=== PATIENT | female | born 1970 | race Hispanic/Latino ===

== ENCOUNTER 2016-08-24 14:44 | Outpatient (CLI) | payer BC | END 2016-08-24 14:45 | disposition home or self-care (01) | LOC: HPCALD 14:44 | PROVIDERS: ATTEND Physician Assistant | DX: E03.9 Hypothyroidism, unspecified (principal); R30.0 Dysuria | CPT/HCPCS: 36415; 84443; 87086 ==

== ENCOUNTER 2017-01-17 11:00 | Outpatient (CLI) | payer BC ==
--- NOTE | 2017-01-17 14:24 | RAD ---
CERVICAL SPINE THREE VIEWS: History: Numbness in the left arm for months, worse recently. No known trauma. Comparison: November 2009 FINDINGS: There is moderate degenerative disc space height loss at C5-6 with osteophyte formation and uncal ve rtebral hypertrophy. There is C5-6 neural foraminal narrowing. There are bilateral C7 cervical ribs. No acute fracture or malalignment. Prevertebral soft tissues are unremarkable. IMPRESSION: 1. Moderate degenerative disc space height loss at C5-6 with endplate sclerosis, osteophyte formatio n, uncal vertebral hypertrophy and likely neural foraminal narrowing bilaterally. MRI may be helpful . This has progressed from 2009. 2. Bilateral C7 ribs can contribute to brachial neuritis. POS: OFF
== END 2017-01-17 11:01 | disposition home or self-care (01) ==
LOC: BURRAD 11:00
PROVIDERS: ATTEND Physician Assistant
DX: R20.0 Anesthesia of skin (principal); M50.322 Other cervical disc degeneration at C5-C6 level; Q76.5 Cervical rib
CPT/HCPCS: 72040

== ENCOUNTER 2019-05-23 00:46 | Emergency (ER) | payer BC ==
[2019-05-23] MEDS ORDERED: Ondansetron PF 4 MG/2 ML Vial ONE ×2 (01:23→01:57)
[2019-05-23 01:29] LABS: Bilirubin Negative (Negative); Blood, Urine Negative (Negative); Glucose, Urine (Dipstick) Negative (Negative); Leukocyte Negative (Negative); Nitrite Negative (Negative); Protein, Urine (Dipstick) Negative (Neg-Trace)
[2019-05-23] MEDS ORDERED: Famotidine In NaCl 20 mg/50 ml Premix Bag ONE (01:31)
[2019-05-23 01:32] LABS: #Basophils 0.2 thou/uL (0.0-0.2); #Eosinphils 0.6 thou/uL (0.0-0.7); #Lymphocytes 2.7 thou/uL (1.20-3.40); #Monocytes 0.6 thou/uL (0.11-0.59); #Neutrophils 4.9 thou/uL (1.40-6.50); %Basophils 1.9 % (0.0-1.0); %Eosinophils 6.3 % (0.0-10.0); %Lymphocytes 30.7 % (21.0-51.0); %Monocytes 6.6 % (0.0-10.0); %Neutrophils 54.5 % (42.0-75.0); Hemoglobin 13.3 g/dL (12.0-16.0); Mean Corpuscular HGB CONC 33.7 g/dL (32.0-36.0); Mean Corpuscular Hemoglobin 29.7 pg (27.0-31.0); Mean Corpuscular Volume 88.2 fL (78.0-98.0); Mean Platelet Volume 6.9 fL (7.4-10.4); Platelet Count 236 thou/uL (130-400); RBC Distribution Width 12.1 % (11.5-14.5); Red Blood Cell (RBC) Count 4.47 mill/uL (4.20-5.40); White Blood Cell (WBC) Count 8.9 thou/uL (4.8-10.8)
[2019-05-23 01:32] LABS: Clarity Hazy (Clear)
[2019-05-23] MEDS ORDERED: Glycopyrrolate 0.4 MG/ 2 ML VIAL ONE (01:51)
[2019-05-23 01:57] LABS: ALT (SGPT) 8 U/L (8-55); AST (SGOT) 16 U/L (5-34); Albumin 4.1 g/dL (3.5-5.0); Alkaline Phosphatase 76 U/L (40-110); Anion Gap 10 mmol/L (10-20); BUN (Urea Nitrogen) 9 mg/dL (7.0-18.7); Bilirubin, Total 0.3 mg/dL (0.2-1.2); Calc. Creatinine Clearance 0 mL/min (70-130); Calcium 9.7 mg/dL (7.8-10.44); Carbon Dioxide 25 mmol/L (22-29); Chloride 106 mmol/L (98-107); Estimated GFR-MDRD 81; Glucose 101 mg/dL (70-105); Lipase 18 U/L (8-78); Potassium 3.4 mmol/L (3.5-5.1); Protein, Total 7.1 g/dL (6.0-8.3); Sodium 138 mmol/L (136-145)
[2019-05-23] MEDS ORDERED: Fentanyl 100 MCG/2 ML VIAL ONE (01:59)
[2019-05-23 03:19] LABS: Troponin I 0.084 ng/mL (< 0.028)
[2019-05-23] MEDS ORDERED: Enoxaparin Sodium 40 MG/0.4 ML SYRINGE ONE (03:39)
[2019-05-23] MEDS ORDERED: Enoxaparin Sodium 30 MG/0.3 ML SYRINGE ONE (03:39)
[2019-05-23] MEDS ORDERED: Aspirin Chewable 81 MG TAB ONE (03:39)
--- NOTE | 2019-05-23 07:21 | RAD ---
PORTABLE CHEST: DATE: 05/23/2019. FINDINGS: An AP portable film at 0342 is compared with a 05/08/2009 study. The heart is normal in size and the lungs are clear. There is no congestion, edema, or pleural effusion. No focal pulmonary infiltrate was seen. Very minor accentuation of basilar lung markings is thought to be due to the overlying sof t tissues. The trachea is midline. IMPRESSION: No acute thoracic findings. POS: BREANNA
== END 2019-05-23 04:00 | disposition short-term general hospital (02) ==
LOC: BURERS 00:46
DX: R10.13 Epigastric pain (principal); R79.89 Other specified abnormal findings of blood chemistry; K21.9 Gastro-esophageal reflux disease without esophagitis; F31.9 Bipolar disorder, unspecified; Z79.899 Other long term (current) drug therapy
CPT/HCPCS: 71045; 80053; 80178; 81003; 82553; 83690; 84484; 85025; 93005; 96361; 96365; 96372; 96375; 96376; J1650; J2405; J3010

== ENCOUNTER 2019-11-26 15:56 | Emergency (ER) | payer BC ==
[2019-11-26 16:37] LABS: #Basophils 0.1 thou/uL (0.0-0.2); #Eosinphils 0.4 thou/uL (0.0-0.7); #Lymphocytes 1.9 thou/uL (1.20-3.40); #Monocytes 0.6 thou/uL (0.11-0.59); #Neutrophils 5.3 thou/uL (1.40-6.50); %Basophils 1.4 % (0.0-1.0); %Eosinophils 4.4 % (0.0-10.0); %Lymphocytes 22.5 % (21.0-51.0); %Monocytes 6.8 % (0.0-10.0); %Neutrophils 64.9 % (42.0-75.0); Hemoglobin 13.8 g/dL (12.0-16.0); Mean Corpuscular HGB CONC 33.1 g/dL (32.0-36.0); Mean Corpuscular Hemoglobin 30.2 pg (27.0-31.0); Mean Platelet Volume 6.7 fL (7.4-10.4); Platelet Count 269 thou/uL (130-400); RBC Distribution Width 12.4 % (11.5-14.5); Red Blood Cell (RBC) Count 4.58 mill/uL (4.20-5.40); White Blood Cell (WBC) Count 8.2 thou/uL (4.8-10.8)
[2019-11-26] MEDS ORDERED: Aspirin Chewable 81 MG TAB ONE (16:37)
[2019-11-26 16:53] LABS: ALT (SGPT) 11 U/L (8-55); AST (SGOT) 13 U/L (5-34); Albumin 4.3 g/dL (3.5-5.0); Alkaline Phosphatase 80 U/L (40-110); Anion Gap 12 mmol/L (10-20); BUN (Urea Nitrogen) 11 mg/dL (9.8-20.1); Bilirubin, Total 0.4 mg/dL (0.2-1.2); CK (CPK) 86 U/L (29-168); Calc. Creatinine Clearance 0 mL/min (70-130); Calcium 9.4 mg/dL (7.8-10.44); Carbon Dioxide 24 mmol/L (22-29); Chloride 105 mmol/L (98-107); Estimated GFR-MDRD 78; Globulin 3.1 g/dL (2.4-3.5); Glucose 92 mg/dL (70-105); Lipase 12 U/L (8-78); Potassium 3.8 mmol/L (3.5-5.1); Protein, Total 7.4 g/dL (6.0-8.3); Sodium 137 mmol/L (136-145)
--- NOTE | 2019-11-26 17:45 | RAD ---
PORTABLE CHEST: 11/26/19 An AP portable film at 1638 is compared with a 05/23/19 study. The heart is normal in size and the roger gs are clear. No infiltrate or effusion was seen. There is no vascular congestion, edema, or other ac ludwin change. The mediastinum appears normal. IMPRESSION: No acute finding. POS: HOME
[2019-11-26 19:59] LABS: Troponin I Less than 0.010 ng/mL (< 0.028)
== END 2019-11-26 20:12 | disposition home or self-care (01) ==
LOC: BURERS 15:56
DX: R07.9 Chest pain, unspecified (principal); K21.9 Gastro-esophageal reflux disease without esophagitis; Z79.899 Other long term (current) drug therapy
CPT/HCPCS: 71045; 80053; 80178; 82550; 83690; 84484; 85025; 93005